=== PATIENT | female | born 1925 | race Caucasian/White ===

== ENCOUNTER → 2017-01-06 | Outpatient (CLI) | payer MEDICARE ==
[~2017-01-06] VITALS: Ht 160 cm; Wt 68.0 kg
[~2017-01-06] MED LIST: ASPI-39 PO; ATOR10TA60 PO; GLYB5TAB3 PO; LISI1TAB5 PO; METO50TA2 PO
[2017-01-06 09:54] VITALS: BP 141/74
--- NOTE | 2017-01-06 11:15 | RAD ---
Indication mass left breast. Known mass at the 8 to 9:00 position of the left breast was reproduced. [employer] ultrasound images were saved. Image guided biopsy was discussed with the patient. The risks of infection and bleeding were outlined. Small possibility of pneumothorax was also discussed. The patient understood the risks associated with the procedure and wished proceed. The skin was prepped and draped in the routine fashion. Local anesthesia was accomplished with 1% lidocaine. A 14-gauge coaxial biopsy system was utilized. Under ultrasound guidance 4 core samples were obtained. Following the biopsy a clip was deployed. The patient tolerated the procedure well. Biopsy specimens were placed in formaldehyde and transferred to pathology. Post biopsy and clip placement conventional mammographic images were obtained. These images were obtained in a dedicated mammographic suite. The biopsy clip is appropriately positioned centrally within the target mass. The biopsy site was dressed in routine fashion and the patient discharged with appropriate instructions. IMPRESSION: Successful biopsy, under ultrasound guidance, of mass in the left breast
== END | disposition home or self-care (01) ==
LOC: US 09:18
PROVIDERS: ATTEND Surgery
DX: R92.8 Other abnormal and inconclusive findings on diagnostic imaging of breast (principal); N63 Unspecified lump in breast
CPT/HCPCS: 76942; C1713; G0206; 77065

== ENCOUNTER → 2017-01-18 | Outpatient (CLI) | payer MEDICARE ==
[2017-01-06 09:54] VITALS: BP 141/74
[~2017-01-18] MED LIST changes: +CARV12.52 PO; +METF-620 PO
[2017-01-18 12:04] LABS: BASO % 0 % (0-3); EOS % 5 % (0-3); HEMATOCRIT 36.4 % (36.0-47.0); HEMOGLOBIN 12.1 g/dL (12.0-15.5); LYMPH # 1.1 x10^3/uL (1.0-4.8); LYMPH % 19 % (24-48); MEAN CORPUSCULAR HEMOGLOBIN 30 pg (25-35); MEAN CORPUSCULAR HGB CONC 33 g/dL (31-37); MEAN CORPUSCULAR VOLUME 92 fL (79-100); MONO % 7 % (0-9); NEUT % 69 % (31-73); PLATELET COUNT 214 x10^3/uL (140-400); RED BLOOD COUNT 3.97 x10^6/uL (3.50-5.40); RED CELL DISTRIBUTION WIDTH 14.1 % (11.5-14.5); WHITE BLOOD COUNT 5.5 x10^3/uL (4.0-11.0)
[2017-01-18 12:18] LABS: ALBUMIN 3.2 g/dL (3.4-5.0); CALCIUM 9.1 mg/dL (8.5-10.1); CREATININE 0.8 mg/dL (0.6-1.0); GFR 67.5
== END | disposition home or self-care (01) ==
LOC: SURGPAT 11:08
PROVIDERS: ATTEND Surgery
DX: Z01.812 Encounter for preprocedural laboratory examination (principal)
CPT/HCPCS: 36415; 80048; 82040; 83036; 85027